=== PATIENT | female | born 1995 ===

== ENCOUNTER 2024-06-22 10:39 | Outpatient (CLI) | payer OTHER | END 2024-06-22 10:40 | disposition home or self-care (01) | LOC: PRENATAL 10:39 | PROVIDERS: ATTEND Obstetrics & Gynecology Maternal & Fetal Medicine | DX: O36.80X0 Pregnancy with inconclusive fetal viability, not applicable or unspecified (principal); Z36.82 Encounter for antenatal screening for nuchal translucency; Z36.9 Encounter for antenatal screening, unspecified; Z14.8 Genetic carrier of other disease; Z3A.13 13 weeks gestation of pregnancy ==

== ENCOUNTER 2024-08-08 07:54 | Outpatient (CLI) | payer OTHER | END 2024-08-08 07:55 | disposition home or self-care (01) | LOC: PRENATAL 07:54 | PROVIDERS: ATTEND Obstetrics & Gynecology Maternal & Fetal Medicine | DX: O44.00 Complete placenta previa NOS or without hemorrhage, unspecified trimester (principal); Z3A.20 20 weeks gestation of pregnancy ==

== ENCOUNTER → 2024-10-02 07:54 | Outpatient (CLI) | payer OTHER | END | disposition home or self-care (01) | LOC: PRENATAL 07:54 | PROVIDERS: ATTEND Obstetrics & Gynecology Maternal & Fetal Medicine | DX: O26.849 Uterine size-date discrepancy, unspecified trimester (principal); O28.3 Abnormal ultrasonic finding on antenatal screening of mother; Z3A.28 28 weeks gestation of pregnancy ==

== ENCOUNTER 2024-11-14 08:24 | Outpatient (CLI) | payer OTHER | END 2024-11-14 08:25 | disposition home or self-care (01) | LOC: PRENATAL 08:24 | PROVIDERS: ATTEND Obstetrics & Gynecology Maternal & Fetal Medicine | DX: O26.849 Uterine size-date discrepancy, unspecified trimester (principal); O36.8199 Decreased fetal movements, unspecified trimester, other fetus; Z3A.33 33 weeks gestation of pregnancy ==

== ENCOUNTER 2024-12-13 13:00 | Inpatient (IN) | payer OTHER ==
[~2024-12-13] VITALS: Ht 160 cm; Wt 93.9 kg
[2024-12-13 14:19] LABS: URINE APPEARANCE Clear; URINE BILIRRUBIN Negative (NEGATIVE); URINE BLOOD Negative; URINE COLOR Yellow; URINE GLUCOSE Negative (NEGATIVE); URINE KETONE Negative (NEGATIVE); URINE LEUKOCYTE Small; URINE NITRATE Negative; URINE PROTEIN Negative (NEGATIVE); URINE UROBILINOGEN 0.2 E.U./dl
[2024-12-13 14:22] LABS: URINE BACTERIA 6153.6 uL (0.0-1933); URINE EPITHELIAL CELLS 41.1 uL (0.0-38.8); URINE RBC 6.7 uL (0.0-20.8); URINE WBC 49.8 uL (0.0-23.2)
[2024-12-13 14:31] LABS: BASO % 0.3 % (0.1-1.2); EOS # 0.05 (0.04-0.54); EOS % 0.6 % (0.7-7.0); LYMPH # 2.07 (1.18-3.74); LYMPH % 23.4 % (19.3-53.1); MEAN PLATELET VOLUME 13.00 fl (9.4-12.4); MONO # 0.68 (0.24-0.82); MONO % 7.7 % (4.7-12.5); NEUT # 5.97 (1.56-6.13); NEUT % 67.3 % (34.0-71.1); RED CELL DISTRIBUTION WIDTH 13.5 % (11.6-14.4)
[2024-12-13 14:49] LABS: INR 0.94
[2024-12-13 15:09] LABS: URINE CAST 0.88 uL (0.0-1.40)
[2024-12-21] VITALS (11 sets, daily range): BP systolic 108–147; BP diastolic 58–93
[2024-12-21] MEDS ORDERED: AMPICILLIN SODIUM 2,000 MG VIAL IV ONE (06:45)
[2024-12-21] MEDS ORDERED: RINGERS SOLUTION,LACTATED 1,000 ML IV SCH (06:45)
[2024-12-21] MEDS ORDERED: AMPICILLIN SODIUM 1,000 MG VIAL IV SCH (09:00)
[2024-12-21] MEDS ORDERED: MORPHINE SULFATE 4 MG/ML VIAL IV PRN (12:30)
[2024-12-21] MEDS ORDERED: CHLORHEXIDINE GLUCONATE 120 ML BOTTLE TP SCH (18:00)
[2024-12-21] MEDS ORDERED: OXYTOCIN 1,000 ML IV SCH (18:00)
[2024-12-21] MEDS ORDERED: ACETAMINOPHEN 500 MG GEL..CAP PO PRN (18:00)
[2024-12-21] MEDS ORDERED: LIDOCAINE HCL 1% 10ML VIAL PERCUT ONE (18:15)
[2024-12-21] MEDS ORDERED: ERYTHROMYCIN BASE OPHT 1GM EACH TUBE OP ONE (18:15)
[2024-12-22 00:40] VITALS: BP 100/60
[2024-12-22 05:43] VITALS: BP 118/78
[2024-12-22 08:03] LABS: BASO % 0.2 % (0.1-1.2); EOS # 0.02 (0.04-0.54); EOS % 0.1 % (0.7-7.0); LYMPH # 2.32 (1.18-3.74); LYMPH % 15.3 % (19.3-53.1); MEAN PLATELET VOLUME 13.20 fl (9.4-12.4); MONO # 1.39 (0.24-0.82); MONO % 9.2 % (4.7-12.5); NEUT # 11.30 (1.56-6.13); NEUT % 74.5 % (34.0-71.1); RED CELL DISTRIBUTION WIDTH 14.0 % (11.6-14.4)
[2024-12-22 08:22] VITALS: BP 110/69
[2024-12-22] MEDS ORDERED: PNV,CALCIUM 72/IRON/FOLIC ACID 1 TAB TABLET PO SCH (09:00)
[2024-12-22] MEDS ORDERED: IRON/V.C/V.B12/FOLIC A/VIT. E 1 CAPL CAPLET PO NR (13:00)
[2024-12-22 17:18] VITALS: BP 118/80
[2024-12-22 21:38] VITALS: BP 101/66
[2024-12-23 00:57] VITALS: BP 105/70
[2024-12-23 08:00] VITALS: BP 118/78
[2024-12-23] MEDS ORDERED: IRON/V.C/V.B12/FOLIC A/VIT. E 1 CAPL CAPLET PO SCH (09:00)
== END 2024-12-23 15:23 | disposition home or self-care (01) | DRG 807 ==
LOC: LDR 12-21 06:01 → OB/GYN 12-21 18:31
PROVIDERS: Obstetrics & Gynecology; ADMIT Obstetrics & Gynecology; ATTEND Obstetrics & Gynecology
PROC: 10E0XZZ Delivery of Products of Conception, External Approach (ICD-10-PCS; principal; 2024-12-21)
PROC: 0HQ9XZZ Repair Perineum Skin, External Approach (ICD-10-PCS; 2024-12-21)
PROC: 4A1HXCZ Monitoring of Products of Conception, Cardiac Rate, External Approach (ICD-10-PCS; 2024-12-21)
DX: O70.0 First degree perineal laceration during delivery (principal); Z37.0 Single live birth; O99.824 Streptococcus B carrier state complicating childbirth; Z3A.39 39 weeks gestation of pregnancy